=== PATIENT | female | born 1965 | race Caucasian/White ===

== ENCOUNTER 2023-10-17 05:49 | Observation (INO) ==
--- NOTE | 2023-09-09 15:20 | Communication Note ---
Patient scheduled for "Robot Assisted Laparoscopic Abdominal Sacrocolpopexy, Possible Anterior Repair, Mid Urethral Sling Placement" on 09/12/[address] Mike. Per nursing interview on 09/09/23- patient took her Ozempic on 09/07/23 (will only be off medication x 5 days). Has chronic history of gastroparesis. Discussed with Dr. Hoffman- patient needs rescheduled. Did inform surgeon's office patient needs rescheduled and will need to be off Ozempic for AT LEAST 7 days. Surgeon's office voices understanding
--- NOTE | 2023-09-17 11:10 | Anesthesiology Consultation ---
Date of Service September 17, 2023 Assessment & Plan (1) Encounter for pre-operative examination: - Check BSG AM DOS - Infectious disease screening: Per assessment on 09/17/23: No known infectious disease contacts or current infectious disease symptoms. No noted Covid positive test result in past 90 days. - Ozempic instructions: Patient takes on Saturdays. Surgery was originally scheduled for 09/12/23 but had taken Ozempic 5 days prior to surgery so decision was made to postpone until able to hold 7 days prior to surgery. Surgery rescheduled to 10/17/23. Spoke with patient 09/17/23- advised patient last dose Ozempic 10/05/23- she voiced understanding. Advised to check with prescriber regarding holding/restarting. - Cardiology visit (09/10/23): "Syncope- occurring less often but still a few times a month. Likely orthostatic hypotension. With benign echo. Syncope during 2 week cardionet showing concerns for bradycardia but with low voltage and artifact. Is scheduled for ILR and TTT in the coming months. Chest pain- CCS class II-III.. Check exercise nuclear stress test. Antianginal therapy limited by recurrent syncope" > Awaiting cardiology-ordered stress test scheduled for 10/11/23 (Dr. Garcia). Chart Review Chart Review: Patient NOT seen in Pre Admission Testing History Surgery Operation Date: 09/12/23 11:35 Proposed Procedures p Robot Assisted Laparoscopic Abdominal Sacrocolpopexy, Possible Anterior Repair, Mid Urethral Sling Placement - Elio Mike MD Operation Date: 10/17/23 08:50 Proposed Procedures p Robotic Assisted Larpaoscopic Abdominal Sacrocolpopexy, Possible Anterior Repair, Mid Urethral Sling Placement - Elio Mike MD Height/Weight Height: 5 ft 6 in Weight: 73.936 kg Allergies Allergy/AdvReac Type Severity Reaction Status Date / Time cyclobenzaprine AdvReac Gastrointestinal Verified 09/09/23 15:05 [From Flexeril] Upset lisinopril AdvReac Cough Verified 09/09/23 15:05 meloxicam [From Mobic] AdvReac Gastrointestinal Verified 09/09/23 15:05 Upset Medications Home Medications Medication Instructions Recorded Confirmed Last Taken albuterol 90 mcg/actuation aerosol 180 mcg inhalation Q4H PRN 05/17/23 09/09/23 Unknown inhaler Shortness Of Breath fluticasone propionate 250 1 inh inhalation DAILY 05/17/23 09/09/23 Unknown mcg/actuation blister powder for inhalation (Flovent Diskus) semaglutide 0.25 mg or 0.5 mg (2 0.5 mg subcut WK 05/17/23 09/09/23 Unknown mg/3 mL) subcutaneous pen injector (Ozempic) tamsulosin 0.4 mg capsule 0.8 mg PO QAM 05/17/23 09/09/23 Unknown bupropion HCl 150 mg tablet,12 hr 150 mg PO QAM 06/28/23 09/09/23 Unknown sustained-release (Wellbutrin SR) oxybutynin chloride 15 mg 15 mg PO DAILY #90 tabs 07/01/23 09/09/23 Unknown tablet,extended release 24 hr duloxetine 30 mg capsule,delayed 30 mg PO QAM 09/09/23 09/09/23 Unknown release (Cymbalta) lorazepam 0.5 mg tablet (Ativan) 0.5 mg PO BID PRN Anxiety 09/09/23 09/09/23 Unknown Past Medical History Medical History History of COVID-19 2020- symptoms resolved Prolapse of female pelvic organs Mitral valve regurgitation follows w/Dr. Garcia [place] Depression Rupture of aorta 2020 > AAA repair 2020, [facility] History of GI bleed February 2023, no tranfusion T2DM (type 2 diabetes mellitus) COPD (chronic obstructive pulmonary disease) Hypertension Ureterolithiasis Hx Past Family History Family History Other No family history of adverse response to anesthesia Past Surgical History Surgical History History of hysterectomy History of AAA (abdominal aortic aneurysm) repair 2020 [facility] History of esophagogastroduodenoscopy (EGD) History of colonoscopy Social History Smoking Status: Former smoker Do You Dip or Chew Tobacco: No Smoking End Date: quit 20-30 yrs ago Hx Alcohol Use: No Hx Substance Use: No substance use type: does not use Testing Laboratory Results 09/05/23 WBC 6.0 H/H 14.1/43.2 PLATELETS 284 SODIUM 139 POTASSIUM 3.6 CHLORIDE 102 CO2 27 BUN 14 CREATININE 0.78 GLUCOSE 99 09/05/23 URINE CULTURE 50-100 K mixed zaira- per urology workload message 09/09/23, urology aware of urine culture findings, recommendation to do symptom check Electrocardiogram Date: 05/16/23 SR at 70bpm. "Normal ECG" Chest X-Ray Date: 09/05/23 Findings: + NAD Echocardiogram Date: 04/27/20 LVEF 55-60%. Normal diastolic function. Trace TR. Stress Test Date: 12/29/19 Type: nuclear No significant ischemia or infarction. The SPECT perfusion images are considered to be within normal limits. LVEF 74%. 101% MPHR. Other Testing Carotid doppler Date: 04/28/23 "Normal carotid duplex scan." B/L antegrade vertebral artery flow.
[2023-10-17] MEDS ORDERED: ceFAZolin 2000MG 2,000 MG/15 ML SYR IV SCH (06:00)
[2023-10-17] MEDS ORDERED: LR 15ML/HR IV SCH (06:00)
[2023-10-17] MEDS ORDERED: ONDANSETRON INJ 2 MG/ML 2 ML VIAL ONE (07:05)
[2023-10-17] MEDS ORDERED: ROCURONIUM BROMIDE 10 MG/ML 5 ML VIAL IV ONE (07:05)
[2023-10-17] MEDS ORDERED: fentaNYL citrate PF 100 MCG/2 ML VIAL ONE (07:05)
[2023-10-17] MEDS ORDERED: LIDOCAINE 2% 2 ML VIAL/AMP(20MG/ML) INFIL ONE ×2 (07:05→07:08)
[2023-10-17] MEDS ORDERED: MIDAZOLAM HCL 1 MG/ML 2ML VIAL ONE (07:05)
[2023-10-17] MEDS ORDERED: PROPOFOL IV EMULSION 10 MG/ML 20 ML VIAL IV ONE (07:05)
[2023-10-17] MEDS ORDERED: DEXAMETHASONE SOD INJ 4 MG/ML VIAL ONE (07:05)
[2023-10-17] MEDS ORDERED: HYDROmorphone INJ 2 MG/ML SYR/VIAL ONE (07:06)
[2023-10-17] MEDS ORDERED: SUGAMMADEX SODIUM 200 MG/2 ML VIAL IV ONE (07:06)
--- NOTE | 2023-10-17 07:15 | History & Physical Report ---
Date of Service October 17, 2023 Assessment & Plan (1) Urinary incontinence: (2) Prolapse of female pelvic organs: Plan We reviewed the plan for robot-assisted laparoscopic sacrocolpopexy and mid urethral sling placement. We reviewed risks and benefits of the surgery. She expressed understanding and willingness to proceed. History of Present Illness Primary Care Provider: Jayme Terry This is a 58-year-old female followed by urology for urinary urgency, pelvic organ prolapse, stress urinary incontinence. She presents to the OR today for robot-assisted laparoscopic sacrocolpopexy and mid urethral sling placement. She denies any changes in her health. Allergies Allergy/AdvReac Type Severity Reaction Status Date / Time cyclobenzaprine AdvReac Gastrointestinal Verified 10/17/23 06:22 [From Flexeril] Upset lisinopril AdvReac Cough Verified 10/17/23 06:22 meloxicam [From Mobic] AdvReac Gastrointestinal Verified 10/17/23 06:22 Upset Home Medications Medication Instructions Recorded Confirmed Type albuterol 90 mcg/actuation aerosol 180 mcg inhalation Q4H PRN 05/17/23 10/17/23 History inhaler Shortness Of Breath fluticasone propionate 250 1 inh inhalation DAILY 05/17/23 10/17/23 History mcg/actuation blister powder for inhalation (Flovent Diskus) semaglutide 0.25 mg or 0.5 mg (2 0.5 mg subcut WK 05/17/23 10/17/23 History mg/3 mL) subcutaneous pen injector (Ozempic) tamsulosin 0.4 mg capsule 0.8 mg PO QAM 05/17/23 10/17/23 History bupropion HCl 150 mg tablet,12 hr 150 mg PO QAM 06/28/23 10/17/23 History sustained-release (Wellbutrin SR) oxybutynin chloride 15 mg 15 mg PO DAILY #90 tabs 07/01/23 10/17/23 Rx tablet,extended release 24 hr duloxetine 30 mg capsule,delayed 30 mg PO QAM 09/09/23 10/17/23 History release (Cymbalta) lorazepam 0.5 mg tablet (Ativan) 0.5 mg PO BID PRN Anxiety 09/09/23 10/17/23 History Past Med/Surg History Medical History (Updated 10/17/23 @ 06:46 by Rika Garcia RN) Implantable loop recorder present History of COVID-19 2020- symptoms resolved Prolapse of female pelvic organs Mitral valve regurgitation follows w/Dr. Garcia, [place] Depression Rupture of aorta 2020 > AAA repair 2020, [facility] History of GI bleed February 2023, no tranfusion T2DM (type 2 diabetes mellitus) COPD (chronic obstructive pulmonary disease) Hypertension Ureterolithiasis Hx Surgical History History of hysterectomy History of AAA (abdominal aortic aneurysm) repair 2020 [facility] History of esophagogastroduodenoscopy (EGD) History of colonoscopy Family History Other No family history of adverse response to anesthesia Social History Smoking Status: Former smoker Tobacco Type: Cigarettes Smoking End Date: quit 20-30 yrs ago; Second Hand Exposure: No; Do You Dip or Chew Tobacco: No; Tobacco Cessation Education Requested by Patient: No Hx Alcohol Use: No Hx Substance Use: No Preferred Language: German Communication Ability: Effective Nondestructive Tester Required: No Beliefs That Will Affect Care: None Current Living Situation: Spouse and Family Other Information That Helps Us Care for You: No Feels Safe at Home: Yes Safety Concerns: Feels Safe At This Time Assistive Devices: Denture - Upper, Denture - Lower and Glasses Assistive Devices Comment: partial lower Review of Systems 12 point review of systems negative except for otherwise indicated. Physical Exam Constitutional: well developed and well nourished; no acute distress Eyes: + anicteric sclerae; pupils not irregula r Respiratory: normal respiratory effort; no respiratory distress, does not use accessory muscles and no cough Cardiovascular: well perfused Gastrointestinal (Abdomen): Inspection/Auscultation: abdomen normal to inspection; abdomen not distended Musculoskeletal: Extremities: extremities normal to inspection Skin: normal turgor; no rashes and no lesions Neurologic: moves all extremities and awake Psychiatric: Orientation: alert and oriented x 3 Results & Data Vital Signs (Past 12 Hours) Vital Signs Temp Pulse Resp BP Pulse Ox O2 Del Method 10/17/23 06:25 36.6 C 71 18 175/99 H 96 Room Air
[2023-10-17] MEDS ORDERED: ceFAZolin 330 MG/ML 1 GM VIAL ONE ×2 (07:33→11:38)
[2023-10-17] MEDS ORDERED: BUPIVACAINE 0.5 % 5 MG/1 ML MPF 30ML VIAL ONE (07:33)
[2023-10-17] MEDS ORDERED: ePHEDrine sulfate 50 MG/ML AMP IV PRN (08:05)
[2023-10-17] MEDS ORDERED: ATROPINE SULFATE 0.1 MG/ML 10ML SYR IV PRN (08:05)
[2023-10-17] MEDS ORDERED: HYDROmorphone INJ 2 MG/ML SYR/VIAL IV PRN (08:05)
[2023-10-17] MEDS ORDERED: ONDANSETRON INJ 2 MG/ML 2 ML VIAL IV PRN ×2 (08:05→13:15)
[2023-10-17] MEDS ORDERED: PROMETHAZINE HCL 12.5 MG in SODIUM CHLORIDE 0.9% 50 ML IV PRN (08:05)
[2023-10-17] MEDS ORDERED: LABETALOL HCL IV 5 MG/ML 20ML IV ONE (08:28)
[2023-10-17] MEDS ORDERED: ePHEDrine sulfate 50 MG/5 ML SYR ONE (09:51)
[2023-10-17] MEDS ORDERED: SURGICEL ABSORB HEMOSTAT 2IN X 14IN TOP ONE (10:36)
[2023-10-17] MEDS ORDERED: BUPIVACAINE/EPINEPHRINE 0.5% MPF 1:200,000 30 ML VIAL ONE (11:03)
--- NOTE | 2023-10-17 12:14 | Operative Report ---
PG Post Operative Report Pre & Post Diagnosis Operation Date: 10/17/23 07:30 Pre-Op Diagnosis: Urinary incontinence; Prolapse of female pelvic organs Post-Op Diagnosis: Urinary incontinence; Prolapse of female pelvic organs I identified the patient and participated in the time-out.: Yes Procedure Operation Date: 10/17/23 07:30 Actual Procedures p Robotic Assisted Larpaoscopic Abdominal Sacrocolpopexy, Mid Urethral Sling Placement - Elio Mike MD Surgeon Elio Mike MD Director Agricultural Services ELIZABETH Schultz Estimated Blood Loss 30 Findings Consistent with Post-Op Diagnosis Specimens None Drains 16 [place] Stevenson catheter per urethra, 10 cc in balloon Anesthesia Type General Complications none Disposition Accompanied Patient To Recovery: Yes Indications This is a 58-year-old female followed by urology for pelvic organ prolapse and urinary incontinence. She presents to the OR today for robot-assisted laparoscopic sacrocolpopexy and mid urethral sling placement. Description of Procedure The patient was identified in the preoperative holding area and informed consent was confirmed. She was then brought to the operating room where general anesthesia was initiated. She was placed on the operating room table in the lithotomy position with all pressure points appropriately padded. The abdomen was prepped with ChloraPrep and her genitals were prepped with Betadine. A timeout was performed A 2 cm incision was made above the umbilicus and then a Veress needle was used to obtain access to the abdomen. Proper position was confirmed with the drop test and low initial insufflation pressure. The abdomen was insufflated with CO2 to a pressure of 12 mmHg. An 8 mm robotic port was placed in the incision and the robotic camera was inserted. The abdominal cavity was surveyed, demonstrating some sigmoid adhesions. There was no injury to abdominal viscera.. The remaining robotic ports were placed under direct visualization, with 2 robotic ports on the left side and 1 robotic port on the right. A 12 mm assistant manager quality management port was placed on the right side as well. I sharply divided the sigmoid adhesions to gain some mobility of the colon. A Stevenson catheter was placed to the bladder as well as a Lindsey vaginal manipulator. Survey of the pelvis identified an appropriate location to be able to place the mesh and to tunnel the taill to the sacrum. I started with the sacral dissection. The area between the aortic bifurcation was identified and the overlying peritoneum was incised. Dissection was carried down to expose the anterior aspect of the sacral promontory. There was good hemostasis. I then turned my attention to the vaginal dissection. With the vagina directed posteriorly, the plane between the bladder and the vagina was established using sharp dissection with judicious cautery. The vagina was then directed anteriorly and the posterior dissection was completed. I then returned my attention to the sacral dissection and created a subperitoneal tunnel to allow passage of the tail of the mesh. 2 [place] sutures were then preplaced in position on the anterior aspect of the sacral promontory. The mesh was then introduced after being soaked in cefazolin irrigation solution. I secured both the anterior and posterior aspects of the white portion of the mesh at the vaginal dissection sites using interrupted 2-0 Vicryl sutures followed by a 3-O V-lock. The tail of the mesh was then tunneled through the subperitoneal window up to the sacral promontory. Tension was placed on the mesh and the prolapse was inspected from the vaginal introitus until there was a satisfactory reduction of the prolapse. The mesh was then secured in place using the [place] sutures. I then used 2-0 Vicryl sutures to close the peritoneum over the pelvic and presacral dissection areas. A piece of Surgicel was placed in the presacral area. There was excellent hemostasis. Bladder was then inspected with the cystoscope. There was good efflux of both ureters. The robot was undocked. Incisions were anesthetized with half percent Marcaine and closed with 4-0 Vicryl Monocryl sutures followed by a layer of Dermabond. I then turned my attention to the mid urethral sling. A stevenson catheter was placed per urethra and the balloon was inflated with 10 mL of normal saline. A 1 cm kwabena was made in the midline of the anterior vaginal wall, care home between the catheter balloon and the urethral meatus. The pubic symphysis was identified and beltran were made approximately 2 fingerbreadths to each side of the midline which would be the exit sites for the trocars. The vaginal mucosa was then anesthetized using 1% lidocaine with epinephrine. The tract to each side of the urethra, as well as the skin and subcutaneous tissue above the pubic bone was anesthetized as well. An incision was made over the mid urethral area. Metzenbaum scissors were then used to dissect laterally to each side, carefully avoiding the urethra. Once the endopelvic fascia was reached, the scissors were used to bluntly establish a tract through this fascia on each side. A [employer] "Advantage Fit" mid urethral sling was then opened. The bladder was drained through the Stevenson catheter. Each arm of the sling was then passed up through the previously established tract, passed through the endopelvic fascia and then inserted along the posterior aspect of the pubic symphysis, exiting the suprapubic skin near the original beltran. The catheter was removed and the bladder was then surveyed using a 70 degree c ystoscope. The initial placement was notable for bladder perforation on the right side. The right arm of the sling was then replaced, at which point there was no evidence of perforation of the bladder where the sling arms had been passed. Bilateral ureteral peristalsis and efflux was appreciated. The urethra was surveyed as the cystoscope was removed and there was no evidence of urethral injury. The sling was then tensioned to provide support but not too much pressure over the urethra, using Lim scissors as a spacer. Once the sling was in good position, the sling was deployed by removing the plastic coating from the arms. The residual arms extending from the suprapubic area were then cut to the level of skin and buried by raising the skin using Adson forceps. The incision on the anterior vaginal wall was closed using a running, locking 2- 0 chromic suture. The sites in the prepubic area where the trocars have been passed were reapproximated using Dermabond. There was good hemostasis throughout. The patient was then awakened from general anesthesia and was brought to the recovery room in stable condition. All sponge and instrument counts were correct at the end of the case. Of note, ELIZABETH Schultz acted as the bedside assistant manager quality management for the duration of the case. She assisted with gaining access, providing retraction and suction. Passing in sutures and applying clips as needed. She helped with closing as well. I attest to the content of the Intraoperative Record and any orders documented therein. Any exceptions are noted below.
[2023-10-17] MEDS: fentaNYL citrate PF 100 MCG/2 ML VIAL IV PRN ×4 (12:25→14:09)
[2023-10-17] MEDS ORDERED: MoRPHine SULFATE 4 MG/ML 1 ML CARP\\VIAL IV PRN (13:15)
[2023-10-17] MEDS ORDERED: MoRPHine SULFATE 2 MG/ML CARP IV PRN (13:15)
[2023-10-17] MEDS ORDERED: PHARMACY GLYCEMIC MGMT CONSULT PRN (13:15)
--- NOTE | 2023-10-17 13:15 | Anesthesiology Progress Note ---
Date of Service October 17, 2023 Anesthesia Post Procedure Vital Signs Vital Signs: Temp Pulse Pulse Resp BP Pulse Ox O2 Del Method 10/17/23 13:05 36.7 C 75 12 126/73 100 Nasal Cannula 10/17/23 12:55 75 14 120/78 100 Nasal Cannula 10/17/23 12:45 75 18 139/82 99 Nasal Cannula 10/17/23 12:35 70 13 132/76 98 Nasal Cannula 10/17/23 12:25 74 19 134/77 98 Nasal Cannula 10/17/23 12:15 91 H 14 151/96 H 99 Nasal Cannula 10/17/23 12:08 36.0 C L 93 H 16 146/124 H 94 Nasal Cannula 10/17/23 06:25 36.6 C 71 18 175/99 H 96 Room Air O2 Flow Rate 10/17/23 13:05 2 10/17/23 12:55 2 10/17/23 12:45 2 10/17/23 12:35 2 10/17/23 12:25 2 10/17/23 12:15 4 10/17/23 12:08 4 10/17/23 06:25 Pain Intensity Abdomen: Pain Intensity: 7 Transfer of Care Handoff Completed per policy Notes Mental Status: alert / awake / arousable and participated in evaluation Patient Amnestic to Procedure: Yes Nausea / Vomiting: adequately controlled Pain: adequately controlled Airway Patency, RR, SpO2: stable & adequate BP & HR: stable & adequate Hydration State: stable & adequate Anesthetic Complications: no major complications apparent
[2023-10-17] MEDS ORDERED: ALBUTEROL HFA 8 GM INHALER INH PRN (13:41)
[2023-10-17] MEDS ORDERED: GLUCAGON FOR INJ 1 MG VIAL IM PRN (14:15)
[2023-10-17] MEDS ORDERED: CARBOHYDRATES FOR HYPOGLYCEMIA PO PRN (14:15)
[2023-10-17] MEDS ORDERED: GLUCOSE 10 TAB/TUBE PO PRN (14:15)
[2023-10-17] MEDS ORDERED: DEXTROSE 50% 50 ML SYRINGE IV PRN (14:15)
[2023-10-17] MEDS ORDERED: GLUCOSE 40% GEL 15 GM TUBE PO PRN (14:15)
--- NOTE | 2023-10-17 14:15 | Pharmacy Report ---
Pharmacy Glycemic Short Note 2 - Date of Service October 17, 2023 - Glycemic Short BSG Results (Last 24 hours): 10/17/23 10/17/23 06:22 13:57 POC Glucose 105 H 124 H OUTPATIENT ANTIDIABETIC REGIMEN: * semaglutide 0.5mg SQ weekly HbA1c:__ ASSESSMENT: * Pt is a 58 year old female admitted POD #0 robot assisted lap sacrocolpopexy and mid urethral sling placement. History of DM2 on Ozempic. Pharmacy consulted to assist with glycemic management while inpatient. * BSGs 105-124mg/dL pre and post op. Receive dexamethasone 4mg IV x 1 intra-op. Diet ordered * Initiate Novolog moderate stress scale ACHS. Hold basal for now. PLAN FOR INPATIENT GLYCEMIC CONTROL: * Hold outpatient oral diabetes medications * Basal insulin * hold * Bolus insulin * NovoLog per scale ACHS or Q6hrs while NPO * Goal Range: Low 110 mg/dL - High 140 mg/dL * Correction Factor: 30 mg/dL/unit * Nutritional / Prandial insulin per carb ratio of 1 unit per 12 grams CHO consumed
[2023-10-17] MEDS: LACTATED RINGER'S 1,000 ML IV SCH ×2 (15:12→23:02)
[2023-10-17] MEDS: oxyCODONE HCL IR 5 MG TAB (IMMEDIATE RELEASE) PO PRN ×2 (15:20→19:25)
[2023-10-17] MEDS: ceFAZolin 2000MG 2,000 MG/15 ML SYR IV SCH ×2 (16:46→23:02)
[2023-10-17] MEDS: INSULIN ASPART PER UNIT CHARGE SC SCH ×2 (17:46→21:37)
[2023-10-17] MEDS: ACETAMINOPHEN 325 MG TAB PO SCH (18:46)
[2023-10-17] MEDS: diphenhydrAMINE Capsule 25 MG CAP PO PRN (19:26)
[2023-10-17] MEDS: DOCUSATE SODIUM 100 MG CAP PO SCH (20:43)
[2023-10-17] MEDS: HEPARIN SOD 5,000 UNIT/0.5 ML VIAL SQ SCH (20:43)
[2023-10-18] MEDS: ACETAMINOPHEN 325 MG TAB PO SCH ×4 (00:02→18:26)
[2023-10-18] MEDS: oxyCODONE HCL IR 5 MG TAB (IMMEDIATE RELEASE) PO PRN ×3 (01:15→12:43)
[2023-10-18] MEDS: IBUPROFEN 200 MG TAB PO PRN ×2 (03:09→20:11)
[2023-10-18] MEDS: LORazepam 0.5 MG TAB PO PRN ×2 (03:38→18:28)
[2023-10-18] MEDS: diphenhydrAMINE Capsule 25 MG CAP PO PRN (05:53)
[2023-10-18 07:42] LABS: Basophils # (auto) 0.04 K/uL (0.00-0.20); Basophils % (auto) 0.5 %; Eosinophils # (auto) 0.09 K/uL (0.00-0.50); Hematocrit (blood only) 37.2 % (37.0-47.0); Hemoglobin 11.8 g/dl (12.0-16.0); Immature Granulocytes # (auto) 0.01 K/uL (0.01-0.20); Immature Granulocytes % (auto) 0.1 %; Lymphocytes % (auto) 35.1 %; Mean Corpuscular Hgb Conc 31.7 g/dL (32.0-36.0); Mean Corpuscular Volume 88.4 fL (80.0-100.0); Mean Platelet Volume 9.1 fL (9.4-12.4); Monocytes # (auto) 0.95 K/uL (0.11-0.59); Monocytes % (auto) 10.8 %; Neutrophils # (auto) 4.63 K/uL (1.40-6.50); Neutrophils % (auto) 52.5 %; Platelet Count 216 K/uL (130-400); RDW Coefficient of Variation 12.8 % (11.5-14.5); RDW Standard Deviation 41.6 fL (36.4-46.3); Red Blood Count 4.21 M/uL (4.20-5.40); White Blood Count 8.82 K/ul (4.8-10.8)
--- NOTE | 2023-10-18 07:44 | Urology Progress Note ---
Date of Service October 18, 2023 Assessment & Plan (1) Prolapse of female pelvic organs: (2) Urinary incontinence: Plan Recovering appropriately from robotic sacrocolpopexy and mid urethral sling placement. Given the chest pain overnight, we will plan to check EKG. Should be ready for Brownlee removal today, must void spontaneously prior to discharge. If labs and EKG look okay and if she is able to void, we will plan on discharge home later this morning. Admission and Anticipated Discharge Date Admission Date: October 17, 2023 Subjective Feeling well, having some abdominal pain at the incision and dissection sites. Tolerating a diet, no nausea or vomiting Has been ambulating in the room, needs to ambulate in the jonas still. No issues with Brownlee catheter Reports some anxiety overnight, transient chest pain with the anxiety. Physical Exam Physical Exam: Well-appearing, NAD Gastrointestinal (Abdomen): Abdomen soft, appropriately tender to palpation. Dermabond over incision sites. Minimal bruising. Results & Data Vital Signs (Past 12 Hours) Vital Signs Temp Pulse Resp BP Pulse Ox O2 Del Method 10/18/23 06:58 37.0 C 76 18 124/76 96 Room Air 10/18/23 03:00 37.0 C 82 18 142/78 H 96 Room Air 10/18/23 00:40 36.7 C 81 18 108/69 96 Room Air 10/17/23 19:53 36.7 C 102 H 18 138/88 97 Room Air PG Care Time/CCT Total # of Minutes Spent Total Time Spent with Patient: Total time spent is greater than 50% in coordination of care (as documented) at patient's floor/unit and/or counseling patient: Coding Level of Care Code None Diagnoses Prolapse of female pelvic organs N81.9 Urinary incontinence R32
[2023-10-18 08:04] LABS: Estimated Average Glucose 117 mg/dl; Hemoglobin A1C 5.7 % (4.5-5.6)
[2023-10-18] MEDS: buPROPion SR 150 MG TABCR PO SCH (08:52)
[2023-10-18] MEDS: DULoxetine HCL 30 MG CAP PO SCH (08:52)
[2023-10-18] MEDS: FLUTICASONE FUROATE 100MCG 14 PUFFS/INHALER INH SCH (08:53)
[2023-10-18] MEDS: DOCUSATE SODIUM 100 MG CAP PO SCH ×2 (08:53→19:59)
[2023-10-18] MEDS: HEPARIN SOD 5,000 UNIT/0.5 ML VIAL SQ SCH ×2 (08:54→19:59)
[2023-10-18] MEDS: OXYBUTYNIN CHLORIDE XL 5 MG TABCR PO SCH (08:54)
[2023-10-18] MEDS: INSULIN ASPART PER UNIT CHARGE SC SCH ×4 (09:00→21:49)
[2023-10-18 09:58] LABS: Calcium 8.7 mg/dl (8.6-10.3); Potassium 4.1 mmol/L (3.5-5.1)
[2023-10-18 10:04] LABS: BUN Creatinine Ratio 19.7 (10-20); Creatinine Clr Calc Pharmacy 92.5 ml/min; Est GFR (African American) 110.4 ml/min; Est GFR (Non-African American) 95.2 ml/min
--- NOTE | 2023-10-18 11:56 | Pharmacy Report ---
Pharmacy Glycemic Short Note 2 - Date of Service October 18, 2023 - Glycemic Short BSG Results (Last 24 hours): 10/17/23 10/17/23 10/17/23 13:57 16:36 20:30 Glucose POC Glucose 124 H 165 H 147 H 10/18/23 10/18/23 10/18/23 03:08 07:15 07:41 Glucose 95 POC Glucose 107 H 94 10/18/23 11:39 Glucose POC Glucose 104 H OUTPATIENT ANTIDIABETIC REGIMEN: * semaglutide 0.5mg SQ weekly HbA1c:__ ASSESSMENT: 10/18: * BSGs well controlled the last 24h: 346-578-104-94-104mg/dL. Received 5 units bolus insulin yesterday. * Tolerating diet, other stressors stable. * No changes today- continue bolus only insulin. 10/17: * Pt is a 58 year old female admitted POD #0 robot assisted lap sacrocolpopexy and mid urethral sling placement. History of DM2 on Ozempic. Pharmacy consulted to assist with glycemic management while inpatient. * BSGs 105-124mg/dL pre and post op. Receive dexamethasone 4mg IV x 1 intra-op. Diet ordered * Initiate Novolog moderate stress scale ACHS. Hold basal for now. PLAN FOR INPATIENT GLYCEMIC CONTROL: * Hold outpatient oral diabetes medications * Basal insulin * hold * Bolus insulin * NovoLog per scale ACHS or Q6hrs while NPO * Goal Range: Low 110 mg/dL - High 140 mg/dL * Correction Factor: 30 mg/dL/unit * Nutritional / Prandial insulin per carb ratio of 1 unit per 12 grams CHO consumed
[2023-10-18] MEDS: LACTATED RINGER'S 1,000 ML IV SCH (14:46)
--- NOTE | 2023-10-18 15:03 | Electrocardiogram Report ---
Test Reason : Blood Pressure : / mmHG Vent. Rate : 070 BPM Atrial Rate : 070 BPM P-R Int : 158 ms QRS Dur : 080 ms QT Int : 414 ms P-R-T Axes : 028 008 023 degrees QTc Int : 447 ms Normal sinus rhythm Normal ECG No previous ECGs available Confirmed by Bora Tolentino ([id number]) on 10/18/2023 3:03:01 PM Referred By: Elio Mike Confirmed By:Bora Tolentino
[2023-10-19] MEDS: ACETAMINOPHEN 325 MG TAB PO SCH ×3 (00:08→13:17)
[2023-10-19] MEDS: oxyCODONE HCL IR 5 MG TAB (IMMEDIATE RELEASE) PO PRN ×3 (00:12→14:29)
[2023-10-19 06:43] LABS: Basophils # (auto) 0.06 K/uL (0.00-0.20); Eosinophils # (auto) 0.17 K/uL (0.00-0.50); Eosinophils % (auto) 2.8 %; Hematocrit (blood only) 36.5 % (37.0-47.0); Immature Granulocytes # (auto) 0.01 K/uL (0.01-0.20); Immature Granulocytes % (auto) 0.2 %; Lymphocytes # (auto) 2.75 K/uL (1.20-3.40); Lymphocytes % (auto) 44.6 %; Mean Corpuscular Hemoglobin 28.6 pg (25.0-34.0); Mean Corpuscular Hgb Conc 32.9 g/dL (32.0-36.0); Mean Corpuscular Volume 86.9 fL (80.0-100.0); Mean Platelet Volume 9.2 fL (9.4-12.4); Monocytes # (auto) 0.67 K/uL (0.11-0.59); Monocytes % (auto) 10.9 %; Neutrophils # (auto) 2.51 K/uL (1.40-6.50); Neutrophils % (auto) 40.5 %; Platelet Count 206 K/uL (130-400); RDW Coefficient of Variation 12.6 % (11.5-14.5); RDW Standard Deviation 40.4 fL (36.4-46.3); White Blood Count 6.17 K/ul (4.8-10.8)
[2023-10-19 07:01] LABS: BUN Creatinine Ratio 20.6 (10-20); Calcium 8.9 mg/dl (8.6-10.3); Creatinine Clr Calc Pharmacy 96.6 ml/min; Est GFR (African American) 113.3 ml/min; Est GFR (Non-African American) 97.8 ml/min; Potassium 4.4 mmol/L (3.5-5.1)
[2023-10-19] MEDS: buPROPion SR 150 MG TABCR PO SCH (08:49)
[2023-10-19] MEDS: OXYBUTYNIN CHLORIDE XL 5 MG TABCR PO SCH (08:49)
[2023-10-19] MEDS: DULoxetine HCL 30 MG CAP PO SCH (08:49)
[2023-10-19] MEDS: FLUTICASONE FUROATE 100MCG 14 PUFFS/INHALER INH SCH (08:50)
[2023-10-19] MEDS: HEPARIN SOD 5,000 UNIT/0.5 ML VIAL SQ SCH (08:50)
[2023-10-19] MEDS: INSULIN ASPART PER UNIT CHARGE SC SCH ×2 (09:03→13:17)
[2023-10-19] MEDS: DOCUSATE SODIUM 100 MG CAP PO SCH (09:06)
--- NOTE | 2023-10-19 10:30 | Urology Progress Note ---
Date of Service October 19, 2023 Assessment & Plan (1) Prolapse of female pelvic organs: (2) Urinary incontinence: Plan Postop day 2 status post robotic sacrocolpopexy and mid urethral sling placement by Dr. Mike. Overnight after surgery patient had some issues with chest pain. EKG was assessed. Patient has not had considerable issues. May have been dealing with distention and abdominal pain radiating into the chest from insufflation of the abdomen. Patient had undergone Brownlee removal. Patient has been tolerating diet. Labs have remained stable. White count 6.17. Creatinine 0.68. Vitals have been stable with blood pressure 120/77 and afebrile. Patient is on room air. Plan to continue to advance as tolerated. Patient encouraged to ambulate. Will plan for follow-up as an outpatient with Dr. Mike. Anticipate discharge today. Encouraged stool softners and gentle activity without heavy lifting. Rec avoid straining or major lifting. Likely d/c after lunch if tolerated. Admission and Anticipated Discharge Date Admission Date: October 17, 2023 Subjective Postop from urologic surgery with Dr. Mike. Patient has been tolerating well, but is having some pain and discomfort. Has been mild sore. Continues to have some abdominal distension/gas pains. Has not had severe pain or uncontrollable pain. Patient has been working on ambulating. Has not had bowel movement or major change. No new nausea or vomiting. Had tolerated anesthesia without major problems Advancing diet as tolerated Review of Systems Review of Systems: All systems reviewed & are unremarkable except as noted in HPI & below Physical Exam Physical Exam: General: Alert in no acute distress. Obesity HEENT: Normocephalic Atraumatic. Inspection normal. Cranial Nerves 2-12 Grossly intact. Normal inspection of face. Normal inspection of neck. Psychologic: Normal affect. Respiratory: Nonlabored. No use of accessory muscles. No tachypnea or dyspnea. Cardiovascular: No tachycardia Skin: [place] and Dry. No rashes or visible lesions. Abdomen: Appropriately tender. Mild distended. No rebound or guarding. Wound: Clean, dry, covered. Results & Data Vital Signs (Past 12 Hours) Vital Signs Temp Pulse Resp BP Pulse Ox O2 Del Method 10/19/23 09:20 36.5 C 76 18 120/77 95 Room Air PG Care Time/CCT Total # of Minutes Spent Total Time Spent with Patient: Total time spent is greater than 50% in coordination of care (as documented) at patient's floor/unit and/or counseling patient: Coding Level of Care Code 58218 SUB INP/OBS CARE 350MIN Diagnoses Prolapse of female pelvic organs N81.9 Urinary incontinence R32
--- NOTE | 2023-10-19 11:31 | Discharge Summary ---
Date of Service October 19, 2023 Admission HPI Per Admitting Provider This is a 58-year-old female followed by urology for urinary urgency, pelvic organ prolapse, stress urinary incontinence. She presents to the OR today for robot-assisted laparoscopic sacrocolpopexy and mid urethral sling placement. She denies any changes in her health. Admission Exam Per Admitting Provider See H&P Principal Diagnosis POP Incontinence Discharge Exam General: Alert in no acute distress. Obesity HEENT: Normocephalic Atraumatic. Inspection normal. Cranial Nerves 2-12 Grossly intact. Normal inspection of face. Normal inspection of neck. Psychologic: Normal affect. Respiratory: Nonlabored. No use of accessory muscles. No tachypnea or dyspnea. Cardiovascular: No tachycardia Skin: [place] and Dry. No rashes or visible lesions. Abdomen: Appropriately tender. Mild distended. No rebound or guarding. Wound: Clean, dry, covered. Discharge Data Allergies Allergy/AdvReac Type Severity Reaction Status Date / Time cyclobenzaprine AdvReac Gastrointestinal Verified 10/17/23 07:35 [From Flexeril] Upset lisinopril AdvReac Cough Verified 10/17/23 07:35 meloxicam [From Mobic] AdvReac Gastrointestinal Verified 10/17/23 07:35 Upset Procedures Performed Operation Date: 10/17/23 07:30 Actual Procedures p Robotic Assisted Larpaoscopic Abdominal Sacrocolpopexy, (Not Applicable) - Elio Mike MD s Mid Urethral Sling Placement(Not Applicable) - Elio Mike MD Hospital Course (1) Prolapse of female pelvic organs: (2) Urinary incontinence: Plan Postop day 2 status post robotic sacrocolpopexy and mid urethral sling placement by Dr. Mike. Overnight after surgery patient had some issues with chest pain. EKG was assessed. Patient has not had considerable issues. May have been dealing with distention and abdominal pain radiating into the chest from insufflation of the abdomen. Patient had undergone Brownlee removal. Patient has been tolerating diet. Labs have remained stable. White count 6.17. Creatinine 0.68. Vitals have been stable with blood pressure 120/77 and afebrile. Patient is on room air. Plan to continue to advance as tolerated. Patient encouraged to ambulate. Will plan for follow-up as an outpatient with Dr. Mike. Anticipate discharge today. Encouraged stool softners and gentle activity without heavy lifting. Rec avoid straining or major lifting. Likely d/c after lunch if tolerated. Total Time Total Time Spent Total Time Spent (In Minutes): 10 minutes Total Time Includes: Examination of the Patient, Discharge Planning, Medication Reconciliation and Communication With Other Providers Discharge Plan Discharge Items Patient Disposition: Home - Self-Care Reason For Visit: Urinary Incontience, Prolapse of Female Pelvic Org Discharge Diagnosis: Pelvic organ prolapse, urinary incontinence Activity: Per Instructions section Lifting: No more than 25 pounds Sexual Activity: Wait until after follow-up appointment Non-emergency contact: Urologist Call non-emergency contact if: you have any medication questions, your symptoms worsen, your pain is worsening, you have a fever, your temperature is above 101, your wound has increased redness and your wound has increased drainage Follow-up/Referrals: Jayme Terry [Primary Care Provider] - Diet: Regular Addtl Attending Provider Instructions: The surgery you had was: Robot-assisted laparoscopic sacrocolpopexy and mid urethral sling placement Please take all medications as prescribed and keep all follow-ups as scheduled. Please call our office at [phone] with any questions, concerns or need to reschedule appointments for any reason. We are happy to assist you Medications: Please take all medications as prescribed. For pain control, you can take tylenol every 6 hours alternating with ibuprofen every 6 hours. If you have been prescribed a narcotic pain medication, please take this according to the instructions on the label. You have been prescribed a week of antibiotics (Bactrim = trimethoprim sulfamethoxazole). Please take this as prescribed, twice daily. Activity: We recommend having someone with you for the first few days after surgery to help care for you. For the first 2 weeks after surgery, we would like you to get up and walk around your house. However, we recommend limit physical activity that would increase your heart rate. This will allow your body to rest and heal. Take naps if you feel tired. Don't lift anything heavier than 25 pounds, mow the law or ride a bicycle until your follow-up appointment. Please avoid long car rides. Home Care: Unless directed otherwise, drink 6 to 8 glasses of water a day (enough to keep your urine light colored). This will also help keep a healthy flow of urine. We recommend using a stool softener such as colace or miralax for the first two weeks to avoid constipation. Wound care: You have surgical glue over your abdominal incisions. This will come off on its own over 2 weeks. You may have increased vaginal drainage over the next several weeks. This is to be expected. No sex for 4 weeks. You may shower as normal. Please avoid tub baths or soaking for about 2 weeks. Follow-up We will have you come to the office in approximately 1 to 2 weeks for wound check, and further follow-up based on that. [place] [facility] [place] [facility] [place] [phone] right away if you have any of the following: Chest pain or trouble breathing (call 911 or go to the hospital) Fever of 101F or higher, uncontrolled vomiting Foul-smelling discharge Redness, swelling, warmth, or increased pain at your incision site Drainage, pus, or bleeding from your incision Pending Studies at Discharge: No Stand-Alone Forms: My [facility], Smoking Cessation Medications and DC Order Prescriptions: New sulfamethoxazole-trimethoprim [Bactrim DS] 800-160 mg tablet 1 tab PO BID 7 Days Qty: 14 0RF Colace Clear 50 mg capsule 50 mg PO BID PRN (Reason: constipation) Qty: 30 2RF Continued oxybutynin chloride 15 mg tablet extended release 24hr 15 mg PO DAILY Qty: 90 3RF bupropion HCl [Wellbutrin SR] 150 mg tablet sustained-release 12 hr 150 mg PO QAM tamsulosin 0.4 mg capsule 0.8 mg PO QAM Ozempic 0.25 mg or 0.5 mg (2 mg/3 mL) pen injector 0.5 mg SUBCUT WK Rx Instructions: Sat albuterol 90 mcg/actuation Aerosol 180 mcg INHALATION Q4H PRN (Reason: Shortness Of Breath) fluticasone propionate [Flovent Diskus] 250 mcg/actuation Blister With Device 1 inh INHALATION DAILY lorazepam [Ativan] 0.5 mg Tablet 0.5 mg PO BID PRN (Reason: Anxiety) duloxetine [Cymbalta] 30 mg Capsule,Delayed Release(Dr/Ec) 30 mg PO QAM Discharge Orders: Discharge Order (Routine); Ordered 10/19/23 Ordered By: Harry Cook Admission Data Admit Date/Time: 10/17/23 12:08 Attending Provider: Elio Mike Admit Provider: Elio Mike Primary Care Provider: Jayme Terry Coding Level of Care Code 81021 IN/OBS DISCH 30 MIN/LESS Diagnoses Prolapse of female pelvic organs N81.9 Urinary incontinence R32
== END 2023-10-19 15:12 | disposition home or self-care (01) ==
LOC: ASU 05:49 → MERGE 05:49 → INTOOBSV 12:08 → PACUINP 12:08 → 3W 14:47